=== PATIENT | male | born 1995 | race Caucasian/White ===

== ENCOUNTER 2017-06-05 12:34 | Emergency (ER) | payer BC ==
[~2017-06-05] VITALS: Ht 190.5 cm; Wt 77.1 kg
[2017-06-05] MEDS ORDERED: FAMOTIDINE 20 MG TABLET PO ONE (13:00)
[2017-06-05] MEDS ORDERED: predniSONE 20 MG TABLET PO ONE (13:00)
--- NOTE | 2017-06-05 13:01 | NUR ---
PT WAS EVALUATED BY DR PALACIOS. PT WAS MEDICATED ACCORDING TO ER MD ORDERS. PT TOLERATED TO MEDICATION WITHOUT COMPLICATIONS. PT WAS D/C TO HOME. D/C INSTRUCTIONS GIVEN TO THE PT.
[2017-06-05 13:03] VITALS: BP 125/71
[2017-06-05] MEDS ORDERED: FAMOTIDINE 20 MG TABLET ONE (13:06)
[2017-06-05] MEDS ORDERED: predniSONE 20 MG TABLET ONE (13:07)
== END 2017-06-05 13:04 | disposition home or self-care (01) ==
LOC: ER 12:34
DX: T63.441A Toxic effect of venom of bees, accidental (unintentional), initial encounter (principal); Z88.1 Allergy status to other antibiotic agents; Y92.89 Other specified places as the place of occurrence of the external cause
CPT/HCPCS: A4663; J7512